=== PATIENT | female | born 1975 | race African-American/Black ===

== ENCOUNTER 2019-08-25 21:00 | Emergency (ER) | payer MEDICAID ==
[~2019-08-25] VITALS: Ht 172.7 cm; Wt 96.0 kg
[2019-08-25] MEDS ORDERED: ONDANSETRON 4MG ODT PO ONE (22:30)
[2019-08-25 22:56] LABS: CHLORIDE 112 mEq/L (98-107)
[2019-08-25 23:14] LABS: BASOPHILS % 0.4 % (0.0-2.0); EOSINOPHILS % 1.5 % (0.0-5.0); HEMATOCRIT. 44.4 % (36.0-48.0); HEMOGLOBIN. 14.4 g/dL (12.0-16.0); LYMPHOCYTES % 37.5 % (20.0-50.0); MEAN CORPUSCULAR HEMOGLOBIN 26.7 pg (28.0-32.0); MEAN CORPUSCULAR VOLUME 81.9 fL (81.0-99.0); MEAN PLATELET VOLUME 9.2 fl (7.4-10.4); MONOCYTES % 5.9 % (2.0-8.0); NEUTROPHILS % 54.7 % (40.0-76.0); PLATELET 198 x1000/uL (130-400); RED BLOOD CELL COUNT 5.42 mill/uL (4.2-5.4)
[2019-08-25 23:20] LABS: B-HCG QUANTITATIVE 114217 mIU/mL (<3)
[2019-08-26 01:35] VITALS: BP 126/80
== END 2019-08-26 01:39 | disposition home or self-care (01) ==
LOC: ER 21:00
DX: O21.9 Vomiting of pregnancy, unspecified (principal); Z3A.08 8 weeks gestation of pregnancy; O09.521 Supervision of elderly multigravida, first trimester
CPT/HCPCS: 36415; 76801; 80053; 81025; 84702; 85025; 86850; 86900; 86901; 99284; Q0162; Z7610

== ENCOUNTER 2019-09-05 19:34 | Emergency (ER) | payer MEDICAID ==
[~2019-09-05] VITALS: Ht 177.8 cm; Wt 89.0 kg
[2019-09-06] MEDS ORDERED: ONDANSETRON HCL 4MG/2ML INJ IV STA (00:31)
[2019-09-06] MEDS ORDERED: SODIUM CHLORIDE 0.9% 1,000 ML IV ONE (00:31)
[2019-09-06 01:28] LABS: BASOPHILS % 0.8 % (0.0-2.0); EOSINOPHILS % 0.7 % (0.0-5.0); HEMATOCRIT. 45.4 % (36.0-48.0); LYMPHOCYTES % 38.6 % (20.0-50.0); MEAN CORPUSCULAR HEMOGLOBIN 27.1 pg (28.0-32.0); MEAN CORPUSCULAR VOLUME 81.8 fL (81.0-99.0); MONOCYTES % 8.9 % (2.0-8.0); PLATELET 203 x1000/uL (130-400); RED BLOOD CELL COUNT 5.55 mill/uL (4.2-5.4); RED CELL DISTRIBUTION WIDTH 16.1 % (11.6-14.6)
[2019-09-06 01:31] LABS: CHLORIDE 109 mEq/L (98-107)
[2019-09-06 05:47] VITALS: BP 121/69
[2019-09-06 07:00] LABS: CLARITY URINE TURBID (CLEAR); COLOR URINE ORANGE (YELLOW); KETONES URINE 3+ (NEGATIVE); LEUKOCYTE ESTERASE URINE TRACE (NEGATIVE); NITRITE URINE POSITIVE (NEGATIVE); OCCULT BLOOD URINE NEGATIVE (NEGATIVE); PH URINE 5.5 (4.5-8.0); PROTEIN URINE 1+ (NEGATIVE); SPECIFIC GRAVITY URINE 1.035 (1.005-1.030)
== END 2019-09-06 05:47 | disposition home or self-care (01) ==
LOC: ER 19:34
DX: O26.891 Other specified pregnancy related conditions, first trimester (principal); Z3A.01 Less than 8 weeks gestation of pregnancy
CPT/HCPCS: 36415; 76705; 80053; 81003; 85025; 96374; 99284; J2405; J7030; Z7610